=== PATIENT | female | born 1980 | race Caucasian/White ===

== ENCOUNTER 2020-02-03 23:05 | Observation (INO) ==
--- NOTE | 2020-02-03 23:31 | Emergency Department Note ---
Impression & Plan Acute cholecystitis, Elevated liver enzymes ED Provider Note Name: MARLA SANCHEZ Age: 39 Sex: F Arrives Via: Walk-In Informant: Patient ED Provider: Barrera Carr MD Chief Complaint: RUQ pain Impression: Acute Cholecystitis Elevated Liver Enzymes Medical Decision Making: Very pleasant 39 yr old female without PMH arrives for acute RUQ pain over last 2 days. Anxious on arrival consistent with tachy/HTN. Declines pain meds though clearly has RUQ TTP. US concerning for acute cholecystitis and with exam and elevated LFTs this seems in line. Given IV mefoxine for abx coverage and Gen surg consulted for further management. She does not have diffuse p eritonitis and is not jaundice, I do not feel CT a/p at this time necessary but will defer to gen surg. Prior Medical Record and Triage/Nursing Notes reviewed by Me Differentials:Cholecystitis, GB stones, hepatitis, PUD, gastritis, appendicis, renal colic, pyelonephritis, gastroenteritis, amongst other pathologies. Vital Signs: reviewed and remarkable for HTN, Tachy Interventions: Mefoxin 2gm IV Labs:Reviewed and remarkable for elevated LFTs, mild wbc elevation Imaging:[facility] Radiologist interpretation reviewed by me: "US RUQ: Gallbladder sludge and stones with mild gallbladder wall thickening. No surrounding fluid. No bile duct dilatation. Evidence of hepatic steatosis. Unremarkable right kidney. Radiologist: Kuldeep Nur MD" Consults:Silvio aFbian PA-C Gen Surg - will bring in for further management Plan: Disposition:Hospitalization. Condition: Good Prescriptions:none PDMP: n/a History of Present Illness:39 yr old female arrives for evaluation of RUQ pain. Patient notes she started having RUQ pain yesterday evening after dinner. She took Motrin with mild relief and didn't eat anything more until this afternoon. When eating this afternoon pain return. Gradually worsening throughout the evening. Associated mild diarrhea earlier. Pain radiates to right back. No fevers, chills, nausea, vomiting, syncope, urinary symptoms, blood in urine/stool, leg swelling, rashes nor other symptoms. No trauma nor injuries. No previous abdominal issues. ROS: See above HPI for pertinent positives & negatives. A total of 10 systems reviewed and were otherwise negative. Past Medical History:Healthy Past Surgical History:Tonsils Family History:Mother and Brother with gallbladder issues Social History:Works from home for [employer] No smoking, no drugs, no etoh Home Medications:Multivitamin Allergies:NKDA Vitals:Blood Pressure: 188/99, Pulse 123, RR 20, T 37.0C, O2 100% on RA Physical Exam: GENERAL: Patient is uncomfortable appearing and in mild distress. Declines pain meds EYES: No scleral icterus, unremarkable pupils. ENT: Mucous membranes moist, no nasal congestion. NECK: No masses appreciated, nomeningismus, trachea is midline. RESPIRATORY: No dyspnea. Clear to auscultation and equal bilaterally. No wheeze, no rhonchi. CARDIOVASCULAR: Regular rate and rhythm.No murmurs, rubs, gallops appreciated. GASTROINTESTINAL: RUQ TTP otherwise abdomen soft, non-tender, no peritonitis.Bowel sounds positive.No masses appreciated. BACK: No midline tenderness, no CVA tenderness EXTREMITIES: Normal motion all extremities, no cyanosis, no edema. NEUROLOGIC: Alert and oriented, no acute motor or sensory deficits, no focal weakness, cranial nerves grossly intact. SKIN: No rash, no jaundice, no diaphoresis. PSYCH: Appropriate GCS: 15 ED Course: Times/Reassessments: Comfortable while not moving, agreeable with Gen Surg Evaluation Barrera Carr MD Past Med/Surg History Social History Smoking Status: Never smoker Feels Safe at Home: Yes Allergies Allergies Allergy/AdvReac Type Severity Reaction Status Date / Time Penicillins AdvReac Unknown Verified 02/04/20 00:01 Home Meds Home Medications Medication Instructions Recorded Confirmed pediatric multivitamin no.30 1 tab PO DAILY 02/04/20 02/04/20 [[facility] Children Multivitamin] Results & Data (ED) Vital Signs Vital Signs - 24 hr 02/03/20 23:12 02/04/20 00:40 02/04/20 01:43 Temperature 37.0 C Temperature Source Oral Pulse Rate 123 H Pulse Rate [Finger] 116 H 116 H Respiratory Rate 20 20 18 Respiratory Effort / Characteristics Non-Labored Spontaneous Non-Labored Spontaneous Non-Labored Spontaneous Respiratory Depth Normal Normal Normal Blood Pressure 188/99 H Blood Pressure [Right Arm] 136/87 148/92 H Blood Pressure Mean 128 Blood Pressure Mean [Right Arm] 103 110 Pulse Oximetry 100 98 98 Oxygen Delivery Method Room Air Room Air Room Air Sepsis Recent Fever Within 48 Hours No Sepsis New/Unexplained Change in Mental Status No Sepsis Action Taken by Nursing No Action Required 02/04/20 02:31 Temperature Temperature Source Pulse Rate Pulse Rate [Finger] 117 H Respiratory Rate 22 Respiratory Effort / Characteristics Non-Labored Spontaneous Respiratory Depth Normal Blood Pressure Blood Pressure [Right Arm] 137/83 Blood Pressure Mean Blood Pressure Mean [Right Arm] 101 Pulse Oximetry 99 Oxygen Delivery Method Room Air Sepsis Recent Fever Within 48 Hours Sepsis New/Unexplained Change in Mental Status Sepsis Action Taken by Nursing Laboratory Data Result diagrams: 02/03/20 23:43 02/03/20 23:43 Lab Results 02/03/20 02/03/20 02/03/20 Range/Units 23:10 23:10 23:43 WBC 14.26 H (4.8-10.8) K/uL RBC 4.56 (4.2-5.4) M/uL Hgb 14.6 (12.0-16.0) g/dL Hct 41.9 (37-47) % MCV 91.9 (80-100) fL MCH 32.0 (25-34) pg MCHC 34.8 (32-36) g/dL RDW Std Deviation 40.7 (36.4-46.3) fL RDW Coeff of Ethel 12.2 (11.5-14.5) % Plt Count 222 (130-400) K/uL MPV 10.3 (7.4-10.4) fL Immature Gran % (Auto) 0.3 % Neut % (Auto) 89.0 % Lymph % (Auto) 5.5 % Blount % (Auto) 5.0 % Eos % (Auto) 0.1 % Baso % (Auto) 0.1 % Neut # (Auto) 12.68 H (1.4-6.5) K/uL Lymph # (Auto) 0.79 L (1.2-3.4) K/uL Blount # (Auto) 0.72 H (0.11-0.59) K/uL Eos # (Auto) 0.01 (0-0.5) K/uL Baso # (Auto) 0.02 (0-0.2) K/uL Immature Gran # (Auto) 0.04 H (0.00-0.02) K/uL Sodium (136-145) mmol/L Potassium (3.5-5.1) mmol/L Chloride (98-107) mmol/L Carbon Dioxide (21-32) mmol/L Anion Gap (3-11) BUN (7-18) mg/dl Creatinine (0.6-1.2) mg/dl Est Cr Clr Drug Dosing ml/min Est GFR ( Amer) Est GFR (Non-Af Amer) BUN/Creatinine Ratio (10-20) Glucose (70-99) mg/dl Calcium (8.5-10.1) mg/dl Total Bilirubin (0.2-1) mg/dl Direct Bilirubin (0-0.2) mg/dl AST (15-37) U/L ALT (12-78) U/L Alkaline Phosphatase (45-117) U/L Total Protein (6.4-8.2) gm/dl Albumin (3.4-5.0) gm/dl Lipase (73-393) U/L Urine Color Yellow Urine Appearance Clear (Clear) Urine pH 5.0 (4.5-7.5) Ur Specific [place] 1.016 (1.000-1.030) Urine Protein Negative (Negative) Urine Glucose (UA) Negative (Negative) Urine Ketones Trace H (Negative) Urine Blood 1+ H (Negative) Urine Nitrite Negative (Negative) Urine Bilirubin Negative (Negative) Urine Urobilinogen Negative (Negative) Ur Leukocyte Esterase Trace H (Negative) Urine WBC (Auto) 1-5 (0-5) /hpf Urine RBC (Auto) 0-4 (0-4) /hpf U Hyaline Cast (Auto) 0 (0-5) /lpf U Epithel Cells (Auto) 10-20 H (0-5) /lpf Urine Bacteria (Auto) Negative (Negative) Urine Test Negative (Negative) SARS-CoV-2 Ag (Rapid) (Negative) 02/03/20 02/04/20 Range/Units 23:43 Unknown WBC (4.8-10.8) K/uL RBC (4.2-5.4) M/uL Hgb (12.0-16.0) g/dL Hct (37-47) % MCV (80-100) fL MCH (25-34) pg MCHC (32-36) g/dL RDW Std Deviation (36.4-46.3) fL RDW Coeff of Ethel (11.5-14.5) % Plt Count (130-400) K/uL MPV (7.4-10.4) fL Immature Gran % (Auto) % Neut % (Auto) % Lymph % (Auto) % Blount % (Auto) % Eos % (Auto) % Baso % (Auto) % Neut # (Auto) (1.4-6.5) K/uL Lymph # (Auto) (1.2-3.4) K/uL Blount # (Auto) (0.11-0.59) K/uL Eos # (Auto) (0-0.5) K/uL Baso # (Auto) (0-0.2) K/uL Immature Gran # (Auto) (0.00-0.02) K/uL Sodium 135 L (136-145) mmol/L Potassium 3.1 L (3.5-5.1) mmol/L Chloride 103 (98-107) mmol/L Carbon Dioxide 23 (21-32) mmol/L Anion Gap 9.0 (3-11) BUN 9 (7-18) mg/dl Creatinine 1.02 (0.6-1.2) mg/dl Est Cr Clr Drug Dosing 71.5 ml/min Est GFR ( Amer) 79.1 Est GFR (Non-Af Amer) 68.3 BUN/Creatinine Ratio 8.8 L (10-20) Glucose 173 H (70-99) mg/dl Calcium 8.8 (8.5-10.1) mg/dl Total Bilirubin 1.1 H (0.2-1) mg/dl Direct Bilirubin 0.8 H (0-0.2) mg/dl AST 507 H (15-37) U/L ALT 320 H (12-78) U/L Alkaline Phosphatase 72 (45-117) U/L Total Protein 7.6 (6.4-8.2) gm/dl Albumin 4.0 (3.4-5.0) gm/dl Lipase 78 (73-393) U/L Urine Color Urine Appearance (Clear) Urine pH (4.5-7.5) Ur Specific [place] (1.000-1.030) Urine Protein (Negative) Urine Glucose (UA) (Negative) Urine Ketones (Negative) Urine Blood (Negative) Urine Nitrite (Negative) Urine Bilirubin (Negative) Urine Urobilinogen (Negative) Ur Leukocyte Esterase (Negative) Urine WBC (Auto) (0-5) /hpf Urine RBC (Auto) (0-4) /hpf U Hyaline Cast (Auto) (0-5) /lpf U Epithel Cells (Auto) (0-5) /lpf Urine Bacteria (Auto) (Negative) Urine Test (Negative) SARS-CoV-2 Ag (Rapid) Negative (Negative) Administered Medications Potassium Chloride (K Oumar / Wtr) 10 meq in 100 mls @ 100 mls/hr IV Q1H TERESA Stop: 02/04/20 03:44 Last Admin: 02/04/20 01:43 Dose: 100 mls/hr Documented by: [id number] Discontinued Medications Cefoxitin Sodium (Mefoxin) 2,000 mg in 60 mls @ 100 mls/hr IV NOW STA Stop: 02/04/20 01:25 Last Infusion: 02/04/20 02:30 Dose: 0 mls/hr Documented by: [id number] Admin: 02/04/20 01:29 Dose: 100 mls/hr Documented by: [id number] Discharge Plan Visit Data Chief Complaint: Abdominal Pain Stated Complaint: UPPER RIGHT ABD PAIN ED Provider: Barrera Carr Discharge Problem: Acute cholecystitis, Elevated liver enzymes Forms Stand Alone Forms: [facility] [employer] Prescriptions Prescriptions: No Action Gummies Children Multivitamin Tablet,Chewable 1 tab PO DAILY RF: 0
[2020-02-04 00:05] LABS: Appearance Urine Clear (Clear); Bacteria Urine Automated Negative (Negative); Bilirubin Urine Negative (Negative); Blood Urine 1+ (Negative); Cast Urine Automated 0 /lpf (0-5); Color Urine Yellow; Glucose Urine UA Negative (Negative); Ketones Urine Trace (Negative); Leukocyte Esterase Urine Trace (Negative); Nitrite Urine Negative (Negative); Protein Urine Negative (Negative); RBC Urine Automated 0-4 /hpf (0-4); Specific Gravity Urine 1.016 (1.000-1.030); Urobilinogen Urine Negative (Negative)
[2020-02-04 00:24] LABS: Basophils # (auto) 0.02 K/uL (0-0.2); Basophils % (auto) 0.1 %; Eosinophils # (auto) 0.01 K/uL (0-0.5); Eosinophils % (auto) 0.1 %; Hematocrit (blood only) 41.9 % (37-47); Hemoglobin 14.6 g/dL (12.0-16.0); Immature Granulocytes # (auto) 0.04 K/uL (0.00-0.02); Immature Granulocytes % (auto) 0.3 %; Lymphocytes # (auto) 0.79 K/uL (1.2-3.4); Lymphocytes % (auto) 5.5 %; Mean Corpuscular Hgb Conc 34.8 g/dL (32-36); Mean Corpuscular Volume 91.9 fL (80-100); Mean Platelet Volume 10.3 fL (7.4-10.4); Monocytes # (auto) 0.72 K/uL (0.11-0.59); Neutrophils # (auto) 12.68 K/uL (1.4-6.5); Platelet Count 222 K/uL (130-400); RDW Coefficient of Variation 12.2 % (11.5-14.5); RDW Standard Deviation 40.7 fL (36.4-46.3); Red Blood Count 4.56 M/uL (4.2-5.4); White Blood Count 14.26 K/uL (4.8-10.8)
[2020-02-04 00:26] LABS: BUN Creatinine Ratio 8.8 (10-20); Bilirubin Direct 0.8 mg/dl (0-0.2); Calcium 8.8 mg/dl (8.5-10.1); Creatinine Clr Calc Pharmacy 71.5 ml/min; Est GFR (African American) 79.1; Est GFR (Non-African American) 68.3; Potassium 3.1 mmol/L (3.5-5.1)
[2020-02-04 00:29] LABS: Bilirubin,Total 1.1 mg/dl (0.2-1); Total Protein 7.6 gm/dl (6.4-8.2)
[2020-02-04] MEDS ORDERED: cefOXitin 2,000 MG/60 ML BAG IV STA (00:50)
[2020-02-04 01:37] LABS: Pregnancy Test, Urine Negative (Negative)
--- NOTE | 2020-02-04 01:42 | History & Physical Report ---
Date of Service February 04, 2020 Assessment & Plan (1) Acute cholecystitis: Admission and Anticipated Discharge Date Admission Date: admit to hospital and proceed as follows: -repeat labs in am -repleat potassium -pt. received mefoxin in ED--will continue -provide analgesics and anti-emetics -keep npo -hydrate with IVF -urine test is pending -plan on cholecystectomy tomorrow with possible IOC by this admission--consent on chart History of Present Illness Chief Complaint: Abdominal Pain Primary Care Provider: NO PCP 39 year old female presented to [facility] ED due to RUQ abdominal pain that began last night about 1 hour after eating. The pain radiated to her back without o ther provocative factors. The pain was relieved with cessation of oral intake. She denies fevers, shakes, chills, or N/V. She has never had this before. In the ED, GB US showed gallstones, sludge, and GB wall thickening. The was slight elevation of Bilirubin. LFTs were elevated. Lipase was normal. COVID- 19 test done in ED was (-). At the time of my exam she was comfortable in no distress. Allergies Allergy/AdvReac Type Severity Reaction Status Date / Time Penicillins AdvReac Unknown Verified 02/04/20 00:01 Home Medications Medication Instructions Recorded Confirmed Type oxycodone-acetaminophen [Percocet] 1 - 2 tab PO .q4-6h PRN #12 tab 02/04/20 Rx pediatric multivitamin no.30 1 tab PO DAILY 02/04/20 02/04/20 History [Gummies Children Multivitamin] Past Med/Surg History Social History Smoking Status: Never smoker Second Hand Exposure: No; Do You Dip or Chew Tobacco: No; Hx Alcohol Use: No Hx Substance Use: No Preferred Language: Fijian Communication Ability: Effective Industrial Safety And Health Manager Required: No Beliefs That Will Affect Care: None Current Living Situation: Spouse Other Information That Helps Us Care for You: No Feels Safe at Home: Yes Safety Concerns: Feels Safe At This Time Assistive Devices: None Review of Systems Constitutional: no fever and no sweats Eyes: no diplopia Ear, Nose, Mouth, Throat: no ear pain Respiratory: no cough and no dyspnea Cardiovascular: no chest pain Gastrointestinal: + abdominal pain; no nausea and no vomiting Genitourinary: no dysuria Musculoskeletal: + back pain Integumentary: no rash Neurologic: no localized weakness Physical Exam Constitutional: well developed and well nourished; no acute distress Eyes: + anicteric sclerae ENMT: Ears: no hearing impairment no sublingual jaundice Neck: trachea midline Respiratory: normal respiratory effort, lungs clear to auscultation Cardiovascular: Rate/Rhythm: regular rate and regular rhythm Gastrointestinal (Abdomen): Percussion/Palpation: + abdomen tender (RUQ) and abdomen soft (+) Kern's sign, no rebound tenderness or guarding Musculoskeletal: no calf pain Skin: no jaundice Neurologic: moves all extremities Psychiatric: A+Ox3, euthymic affect Results & Data Results & Data ([facility]) Vital Signs (Past 12 Hours) Vital Signs Temp Pulse Pulse Resp BP BP Pulse Ox 02/04/20 00:40 116 H 20 136/87 98 02/03/20 23:12 37.0 C 123 H 20 188/99 H 100 Supervising Physician Co-Signing Physician Notes Patient discussed with SONIA Vega overnight, agree with above. See my progress note from this morning for further details. PG Care Time/CCT Total # of Minutes Spent Total Time Spent with Patient: Total time spent is greater than 50% in coordination of care (as documented) at patient's floor/unit and/or counseling patient: Coding Level of Care Code 49809 OBS Care - Level 3 Diagnoses Acute cholecystitis K81.0
[2020-02-04] MEDS: POTASSIUM CHLORIDE / WTR 10 MEQ/100 ML PLCT IV SCH ×2 (01:43→03:39)
[2020-02-04] MEDS ORDERED: MoRPHine SULFATE 2 MG/ML CARP IV PRN (02:51)
[2020-02-04] MEDS: LACTATED RINGER'S 1,000 ML IV SCH ×3 (03:38→20:19)
[2020-02-04] MEDS: ONDANSETRON INJ 2 MG/ML 2 ML VIAL IV SCH ×4 (04:26→20:15)
[2020-02-04] MEDS: cefOXitin 2,000 MG in DEXTROSE 5% 50 ML IV SCH ×4 (05:43→23:07)
[2020-02-04 06:07] LABS: Basophils # (auto) 0.02 K/uL (0-0.2); Basophils % (auto) 0.3 %; Eosinophils # (auto) 0.01 K/uL (0-0.5); Eosinophils % (auto) 0.2 %; Hematocrit (blood only) 43.2 % (37-47); Hemoglobin 15.2 g/dL (12.0-16.0); Immature Granulocytes # (auto) 0.01 K/uL (0.00-0.02); Immature Granulocytes % (auto) 0.2 %; Lymphocytes # (auto) 0.88 K/uL (1.2-3.4); Lymphocytes % (auto) 13.7 %; Mean Corpuscular Hemoglobin 32.4 pg (25-34); Mean Corpuscular Volume 92.1 fL (80-100); Mean Platelet Volume 10.1 fL (7.4-10.4); Monocytes # (auto) 0.61 K/uL (0.11-0.59); Monocytes % (auto) 9.5 %; Neutrophils # (auto) 4.89 K/uL (1.4-6.5); Neutrophils % (auto) 76.1 %; Platelet Count 217 K/uL (130-400); RDW Coefficient of Variation 12.4 % (11.5-14.5); RDW Standard Deviation 41.9 fL (36.4-46.3); Red Blood Count 4.69 M/uL (4.2-5.4); White Blood Count 6.42 K/uL (4.8-10.8)
[2020-02-04 06:14] LABS: Mean Corpuscular Hgb Conc 35.2 g/dL (32-36)
[2020-02-04 06:42] LABS: Albumin Level 3.9 gm/dl (3.4-5.0); Bilirubin Direct 1.3 mg/dl (0-0.2); Calcium 8.7 mg/dl (8.5-10.1); Creatinine Clr Calc Pharmacy 98.5 ml/min; Est GFR (African American) 118.6; Est GFR (Non-African American) 102.3; Potassium 3.7 mmol/L (3.5-5.1)
[2020-02-04 06:50] LABS: Bilirubin,Total 1.8 mg/dl (0.2-1); Total Protein 7.9 gm/dl (6.4-8.2)
--- NOTE | 2020-02-04 07:18 | Ultrasound Report ---
ULTRASOUND RIGHT UPPER QUADRANT ABDOMEN CLINICAL HISTORY: Postprandial right upper quadrant abdominal pain. COMPARISON STUDY: No priors. TECHNIQUE: Real-time, grayscale, and color flow sonography of the right upper quadrant of the abdomen was performed. Images are reviewed in the transverse and longitudinal planes. FINDINGS: Liver: The liver is normal in size and echotexture. There is no intrahepatic biliary ductal dilatatio n. The main portal vein is patent. Gallbladder: The gallbladder is filled with stones and sludge. The gallbladder wall is mildly thicken ed measuring up to 4 mm. No pericholecystic fluid is seen. A sonographic Kern's sign is reportedly absent. The common bile duct measures up to 0.5 cm in diameter. Pancreas: Visualized portions of the pancreatic head and body are normal in appearance. The splenic v ein is patent. Right kidney: Survey images of the right kidney demonstrate normal size and echotexture. There is no hydronephrosis. Ascites: None. IMPRESSION: 1. The gallbladder is filled with stones and sludge and there is mild gallbladder wall thickening. Th ere is no definitive sonographic evidence of acute cholecystitis. If there is strong clinical concern a nuclear hepatobiliary scan could be considered. 2. There is no intra or extrahepatic biliary ductal dilatation. ACT 112: Negative or not required by law. Electronically signed by: Shalom Mendoza M.D. 02/04/2020 7:17 AM
--- NOTE | 2020-02-04 09:38 | Surgery Progress Note ---
Date of Service February 04, 2020 Assessment & Plan (1) Acute cholecystitis: Patient admitted with RUQ pain- RUQ US on 02/02 revealed cholelithiasis and sludge with mild gallbladder wall thickening. There is no intra or extrahepatic biliary ductal dilatation WBC down today to 6.4 from 14 on abx; afebrile Today there is an elevation in her LFTs, Tbili 1.8 (1.1), Db: 1.3 (0.8), AST: 1756 (507), ALT: 1333 (320) Due to bump in LFT's we will order an MRCP today to evaluate for CBD stones; pen ding results will take patient to OR +/- GI for consideration of ERCP Further recommendations to follow s/p MRCP Admission and Anticipated Discharge Date Admission Date: February 04, 2020 Supervising Physician Co-Signing Physician Notes Patient seen and examined, labs and imaging reviewed, agree with above. Patient admitted overnight with cholelithiasis and possible cholecystitis. Marginal elevation in her LFTs and bilirubin, which increased significantly this morning. GI was consulted and MRCP was ordered. MRCP was just obtained and showed no evidence of choledocholithiasis. Her pain is minimal at this time. On exam she is afebrile with stable vitals. Mild tenderness to palpation in the right upper quadrant with no evidence of guarding or rebound, no Kern sign. Leukocytosis has resolved. Hyperbilirubinemia and transaminitis noted. Ultrasound with stones and sludge and possible wall thickening, MRCP with no evidence of choledocholithiasis. 39-year-old female with cholelithiasis and likely cholecystitis and recently passed small stone. After discussion with GI we will proceed with cholecystectomy. Plan for laparoscopic cholecystectomy with possible cholangiogram The risk the procedure were discussed to include but not limited to bleeding, infection, retained stone, bile leak, damage surrounding structures including common bile duct, need for future more extensive surgery, conversion open, failure to treat symptoms, and the risk of anesthesia Likely discharge tomorrow morning if bilirubin and enzymes are improving and pain controlled Wound care instructions and activity restrictions reviewed The diagnosis, details of the procedure and recovery, and plan of care were discussed with the patient, all questions were answered, the patient expressed understanding and agrees with plan of care as stated Subjective Evaluated patient at bedside. She reports not much pain overnight because she hasn't been eating. Denies any nausea/vomiting. Eager to try to get home for thanksgiving. Physical Exam Physical Exam: awake/alert Constitutional: well developed, well nourished and comfortable; no acute distress Respiratory: normal respiratory effort Gastrointestinal (Abdomen): Inspection/Auscultation: abdomen not distended Percussion/Palpation: + abdomen tender (very mild ttp in RUQ) and abdomen soft Results & Data ([facility]) Vital Signs (Past 12 Hours) Vital Signs Temp Pulse Pulse Resp BP BP Pulse Ox 02/04/20 07:50 36.8 C 86 16 141/93 H 100 02/04/20 02:52 36.9 C 113 H 20 147/88 H 100 02/04/20 02:31 117 H 22 137/83 99 02/04/20 01:43 116 H 18 148/92 H 98 02/04/20 00:40 116 H 20 136/87 98 02/03/20 23:12 37.0 C 123 H 20 188/99 H 100 [facility], [id number] Ultrasound Report Patient: MARLA SANCHEZ Date: 02/04/20MR#: [id number]: [address]Acct ID:[id number]: Date: 1980[facility] Zip: [place], [place] [address]Pbf: 39Location: 3ESex: FRoom/Bed: [id number] Phy: Patric Crain, DODiagnosis: CHOLECYSTITISPri Phy: PCP,NOService Date: 02/03/20Fa Phy:Interpreting Phy: Shalom Mendoza MDAdmit Phy: Patric Crain, DO Ordering Phy: Barrera Carr M.D. cc: ~ ULTRASOUND RIGHT UPPER QUADRANT ABDOMEN CLINICAL HISTORY: Postprandial right upper quadrant abdominal pain. COMPARISON STUDY: No priors. TECHNIQUE: Real-time, grayscale, and color flow sonography of the right upper quadrant of the abdomen was performed. Images are reviewed in the transverse and longitudinal planes. FINDINGS: Liver: The liver is normal in size and echotexture. There is no intrahepatic biliary ductal dilatation. The main portal vein is patent. Gallbladder: The gallbladder is filled with stones and sludge. The gallbladder wall is mildly thickened measuring up to 4 mm. No pericholecystic fluid is seen. A sonographic Kern's sign is reportedly absent. The common bile duct measures up to 0.5 cm in diameter. Pancreas: Visualized portions of the pancreatic head and body are normal in appe arance. The splenic vein is patent. Right kidney: Survey images of the right kidney demonstrate normal size and echotexture. There is no hydronephrosis. Ascites: None. IMPRESSION: 1. The gallbladder is filled with stones and sludge and there is mild gallbladder wall thickening. There is no definitive sonographic evidence of acute cholecystitis. If there is strong clinical concern a nuclear hepatobiliary scan could be considered. 2. There is no intra or extrahepatic biliary ductal dilatation. ACT 112: Negative or not required by law. Electronically signed by: Shalom Mendoza M.D. 02/04/2020 7:17 AM PG Care Time/CCT Total # of Minutes Spent Total Time Spent with Patient: Total time spent is greater than 50% in coordination of care (as documented) at patient's floor/unit and/or counseling patient: Coding Level of Care Code 25240 Subseq Hosp Care Lvl 1 Diagnoses Acute cholecystitis K81.0
--- NOTE | 2020-02-04 10:12 | Magnetic Resonance Report ---
MRCP CLINICAL HISTORY: Elevated hepatic transaminases. Cholecystitis. COMPARISON STUDY: Abdominal ultrasound dated 02/03/2020. TECHNIQUE: Abdominal MRCP is performed utilizing various T2-weighted sequences in the axial and coron al planes. IV contrast was not administered for this examination. 3-D reformats are created and asses sed. FINDINGS: Intraluminal debris/gallstones are seen within the gallbladder by ultrasound are not visualized by MR I. There is mild nonspecific gallbladder wall thickening. No pericholecystic fluid is identified. The re is no intra or extrahepatic biliary ductal dilatation. The common bile duct measures up to 4 mm in diameter. There are no intraluminal filling defects to suggest choledocholithiasis. The pancreatic d uct is normal in caliber. The unenhanced liver, spleen, adrenal glands, kidneys, and pancreas are grossly normal. The abdominal aorta is normal in caliber. There is no bowel obstruction. No abdominal ascites is identified. There is no pleural effusion. The bony structures appear intact. IMPRESSION: 1. Intraluminal debris/gallstones identified by ultrasound are not appreciated by MRI. 2. Mild gallbladder wall thickening is nonspecific. If there is clinical concern for acute cholecysti tis a nuclear hepatobiliary scan should be considered. 3. There is no intra or extrahepatic biliary ductal dilatation. No choledocholithiasis is seen. Electronically signed by: Shalom Mendoza M.D. 02/04/2020 10:11 AM
[2020-02-04] MEDS ORDERED: PROPOFOL IV EMULSION 10 MG/ML 20 ML VIAL IV ONE (11:23)
[2020-02-04] MEDS ORDERED: fentaNYL citrate 100 MCG/2 ML VIAL ONE (11:23)
[2020-02-04] MEDS ORDERED: MIDAZOLAM HCL 1 MG/ML 2ML VIAL ONE (11:23)
[2020-02-04] MEDS ORDERED: LIDOCAINE HCL 2% 2 ML VIAL/AMP(20MG/ML) INFIL ONE (11:23)
[2020-02-04] MEDS ORDERED: ROCURONIUM BROMIDE 10 MG/ML 5 ML VIAL IV ONE (11:23)
[2020-02-04] MEDS ORDERED: BUPIVACAINE 0.5 % 5 MG/1 ML MPF 30ML VIAL ONE (11:44)
[2020-02-04] MEDS ORDERED: ATROPINE SULFATE 0.1 MG/ML 10ML SYR IV PRN (12:06)
[2020-02-04] MEDS ORDERED: ONDANSETRON INJ 2 MG/ML 2 ML VIAL IV PRN (12:06)
[2020-02-04] MEDS ORDERED: fentaNYL citrate 100 MCG/2 ML VIAL IV PRN (12:06)
[2020-02-04] MEDS ORDERED: ePHEDrine sulfate 50 MG/ML AMP IV PRN (12:06)
--- NOTE | 2020-02-04 12:06 | Anesthesiology Consultation ---
Date of Service February 04, 2020 Assessment & Plan (1) Encounter for pre-operative examination: Chart Review Chart Review: Acceptable Risk for Surgery and Patient NOT seen in Pre Admission Testing Consults Requested none ASA ASA1 Proposed Anesthesia Anesthesia Type: General Risk / Benefits Reviewed With: PT / POA / Parent / Guardian, Accepts Plan and Informed Consent Obtained History Surgery Operation Date: 02/04/20 11:20 Proposed Procedures p Laparoscopic Cholecystectomy,Possible Open, Possible Cholangiogram - Patric Crain, DO, FACS Height/Weight Height: 5 ft 4 in Weight: 71.8 kg Allergies Allergy/AdvReac Type Severity Reaction Status Date / Time Penicillins AdvReac Unknown Verified 02/04/20 00:01 Medications Home Medications Medication Instructions Recorded Confirmed Last Taken oxycodone-acetaminophen [Percocet] 1 - 2 tab PO .q4-6h PRN #12 tab 02/04/20 Unknown pediatric multivitamin no.30 1 tab PO DAILY 02/04/20 02/04/20 02/03/20 [Gummies Children Multivitamin] Active Medications Generic Name Dose Route Start Last Admin Trade Name Freq PRN Reason Stop Dose Admin Cefoxitin Sodium 2,000 mg/ 60 mls @ 100 mls/hr 02/04/20 06:00 02/04/20 11:57 Dextrose IV 02/14/20 05:59 100 mls/hr Q6H TERESA Administration Lactated Ringer's 1,000 mls @ 100 mls/hr 02/04/20 02:51 02/04/20 06:38 Lr IV 03/05/20 02:50 100 mls/hr .Q10H TERESA Infusion Ondansetron HCl 4 mg 02/04/20 02:51 02/04/20 09:22 Ondansetron Inj 2 Mg/Ml 2 Ml Vial IV 03/05/20 02:50 4 mg Q6H TERESA Administration NPO Date Last Intake of Fluids: 02/03/20 Time Last Intake of Fluids: 21:00 Date Last Intake of Solids: 02/03/20 Time Last Intake of Solids: 14:00 Exercise / Class Metabolic Activity II 4-5 Yardwork/Stairs/Walk up hill Past Anesthesia History No Hx of Anesthesia Complications and No Family Hx of Anesthesia Complications History of PONV No Hx of PONV and No Hx of Motion Sickness Social History Smoking Status: Never smoker Do You Dip or Chew Tobacco: No Hx Alcohol Use: No Hx Substance Use: No Physical Exam Vital Signs Last Vital Signs Temp 37.1 C 02/04/20 11:15 Pulse 87 02/04/20 11:15 Resp 18 02/04/20 11:15 BP 152/86 H 02/04/20 11:15 Pulse Ox 99 02/04/20 11:15 ENMT Mouth: no dentition abnormality Thyromental Distance: > or= 3.5 Finger Breadths Mallampati Class: II Neck normal visual inspection Respiratory normal respiratory effort Auscultation: lungs clear to auscultation bilaterally Cardiovascular Rate/Rhythm: regular rate and regular rhythm Psychiatric Orientation: alert Testing Laboratory Results 02/04/20 05:50 02/04/20 05:50 Urine Color Yellow 02/03/20 23:10 Urine Appearance Clear (Clear) 02/03/20 23:10 Urine pH 5.0 (4.5-7.5) 02/03/20 23:10 Ur Specific [place] 1.016 (1.000-1.030) 02/03/20 23:10 Urine Protein Negative (Negative) 02/03/20 23:10 Urine Glucose (UA) Negative (Negative) 02/03/20 23:10 Urine Ketones Trace (Negative) H 02/03/20 23:10 Urine Nitrite Negative (Negative) 02/03/20 23:10 Ur Leukocyte Esterase Trace (Negative) H 02/03/20 23:10 Urine WBC (Auto) 1-5 /hpf (0-5) 02/03/20 23:10 Urine RBC (Auto) 0-4 /hpf (0-4) 02/03/20 23:10 U Hyaline Cast (Auto) 0 /lpf (0-5) 02/03/20 23:10 U Epithel Cells (Auto) 10-20 /lpf (0-5) H 02/03/20 23:10 Urine Bacteria (Auto) Negative (Negative) 02/03/20 23:10 Urine Test Negative (Negative) 02/03/20 23:10 02/03/20 23:10 Urine Test Negative
[2020-02-04] MEDS ORDERED: CONRAY 60% 50 ML VIAL FLUSH ONE (12:41)
--- NOTE | 2020-02-04 13:33 | Operative Report ---
PG Post Operative Report Pre & Post Diagnosis Operation Date: 02/04/20 11:20 Pre-Op Diagnosis: CHOLECYSTITIS Post-Op Diagnosis: CHOLECYSTITIS I identified the patient and participated in the time-out.: Yes Procedure Operation Date: 02/04/20 11:20 Actual Procedures p Laparoscopic Cholecystectomy,Attempted Cholangiogram - Patric Crain DO, GISELA Surgeon Patric Crain DO, GISELA Tobacco Curer Alex Faith Estimated Blood Loss 10 Findings Consistent with Post-Op Diagnosis Mild chronic gallbladder inflammation. Cystic duct and artery circumferentially dissected. Cystic artery doubly clipped and divided. Cystic duct was dilated. Multiple attempts at cholangiogram were unsuccessful. During the process several small stones were extracted through the distal cystic duct. Aborted cholangiogram, cystic duct doubly clipped and divided. Gallbladder removed, 10 mm flat MILTON drain placed in gallbladder fossa, good hemostasis. Specimens Gallbladder Anesthesia Type General Complications none Disposition Accompanied Patient To Recovery: No Disposition: Recovery Room Indications 39-year-old female admitted overnight with cholelithiasis and likely cholecystitis. This morning her LFTs and bilirubin were more elevated, MRCP was performed and was negative. After discussion with GI we decided to proceed with laparoscopic cholecystectomy with possible cholangiogram. The risks of the procedure were discussed, all questions were answered, and the patient agreed to proceed with surgery as planned. Description of Procedure The patient was properly identified, consented, and taken to the operating room where she was placed in the supine position. General endotracheal anesthesia was induced. SCDs and a safety belt were placed. Preoperative antibiotics were administered. The patient's abdomen was prepped and draped in the standard sterile fashion. A surgical timeout was performed and all parties were in agree ment that this was the correct patient and procedure to be performed and we continued as planned. An incision was made superior and to the left of the umbilicus overlying the rectus muscle and the Veress needle was inserted. Saline drop test confirmed entry into the peritoneum. The abdomen was insufflated with carbon dioxide which the patient tolerated without incident. The abdomen was then entered using the Optiview technique and a 5 mm trocar. The laparoscope was inserted and no damage from initial trocar or Veress needle placement was noted, no gross abnormalities were noted within the 4 quadrants of the abdomen. An 11 mm port was placed in the subxiphoid position and two 5 mm ports were then placed in the right subcostal position. The patient was placed in reverse Trendelenburg position and rotated towards the left. The gallbladder was mildly inflamed. The dome of the gallbladder was retracted towards the left upper quadrant and the infundibulum was retracted toward the ri ght lower quadrant revealing Calot's triangle. Peritoneal attachments were taken down with electrocautery and blunt dissection. The cystic duct and artery were circumferentially dissected. A window of safety was obtained showing the cystic duct entering the gallbladder with no aberrant structures noted. The cystic artery was doubly clipped and divided. I then attempted to perform a cholangiogram using the Nesbitt cholangiocatheter but had significant back pressure and was unsuccessful. Repeated attempts using a Kemi catheter were also unsuccessful. During the process we did extract 2 to 3 stones out of the distal cystic duct. The cystic duct was doubly clipped and divided. The gallbladder was then lifted off the gallbladder fossa with electrocautery. The gallbladder was placed in an Endo Catch bag and removed through the subxiphoid port site. The right upper quadrant was irrigated and hemostasis was found to be good. A 10 mm flat MILTON drain was then placed in the gallbladder fossa in case the patient needed an ERCP in the near future. 5 mm trochars were removed under direct visualization and the abdomen was allowed to collapse. The subxiphoid port site fascia was closed with 0 Vicryl suture utilizing the Jose Carlos-Solitario device. The wound was irrigated, and the skin of all ports was closed with 4-0 Monocryl subcuticular sutures. Dermabond was placed over the wounds. The patient was extubated in the operating room and taken to the PACU where she recovered without apparent incident. All sponge, instrument and needle counts were correct at the conclusion of the procedure. The patient tolerated the procedure well. The physician's radiology physician assistant was present and scrubbed for the entirety of the case and was essential in positioning the patient, prepping and draping, retraction and exposure, driving the laparoscope, removal of the gallbladder, closure of the incisions, and placement of the dressings. I attest to the content of the Intraoperative Record and any orders documented therein. Any exceptions are noted below.
--- NOTE | 2020-02-04 13:53 | Fluoroscopy Report ---
[place] cholangiogram OR CLINICAL HISTORY: Attempted cholangiogram. COMPARISON STUDY: Right upper quadrant ultrasound February 03, 2020. MRCP February 04, 2020. FLUOROSCOPY TIME: 1 minute and 18 seconds. FLUOROSCOPIC IMAGES: 0. FINDINGS: Fluoroscopy was provided during attempted intraoperative cholangiogram. No images were subm itted for interpretation as the cholangiogram was unsuccessful. IMPRESSION: Fluoroscopy provided during attempted cholangiogram. ACT 112: Negative or not required by law. Electronically signed by: Antonio Pettit M.D. 02/04/2020 1:51 PM
--- NOTE | 2020-02-04 14:10 | Anesthesiology Progress Note ---
Date of Service February 04, 2020 Anesthesia Post Procedure Vital Signs Vital Signs: Temp Pulse Pulse Pulse Resp BP BP 02/04/20 14:00 86 16 144/93 H 02/04/20 13:50 98 H 16 151/93 H 02/04/20 13:40 37.6 C H 96 H 16 131/88 02/04/20 11:15 37.1 C 87 18 152/86 H 02/04/20 07:50 36.8 C 86 16 141/93 H 02/04/20 02:52 36.9 C 113 H 20 147/88 H 02/04/20 02:31 117 H 22 137/83 02/04/20 01:43 116 H 18 148/92 H 02/04/20 00:40 116 H 20 136/87 02/03/20 23:12 37.0 C 123 H 20 188/99 H Pulse Ox 02/04/20 14:00 100 02/04/20 13:50 100 02/04/20 13:40 100 02/04/20 11:15 99 02/04/20 07:50 100 02/04/20 02:52 100 02/04/20 02:31 99 02/04/20 01:43 98 02/04/20 00:40 98 02/03/20 23:12 100 Pain Intensity Right Upper Abdomen: Pain Intensity: 2 Transfer of Care Handoff Completed per policy Notes Mental Status: alert / awake / arousable Patient Amnestic to Procedure: Yes Nausea / Vomiting: adequately controlled Pain: adequately controlled Airway Patency, RR, SpO2: stable & adequate BP & HR: stable & adequate Hydration State: stable & adequate Anesthetic Complications: no major complications apparent
[2020-02-04] MEDS ORDERED: MoRPHine SULFATE 4 MG/ML 1 ML CARP\\VIAL IV PRN (14:28)
[2020-02-04] MEDS ORDERED: oxyCODONE/ACETAMINOPHEN 5mg/325mg TAB PO PRN ×2 (14:28)
--- NOTE | 2020-02-04 14:51 | Surgery Progress Note ---
Date of Service February 04, 2020 Assessment & Plan (1) Acute cholecystitis: s/p lap tay with attempted cholangiogram, multiple stones milked from distal cystic duct. Drain placed. Some concern for continued choledocholithiasis. Plan for clear liquids today, NPO after midnight. repeat labs in am, if LFT's downtrending then consider advance diet, removed drain, d/c to home if no significant improvement, then discuss ERCP with gi, they are aware of patient Dr. Helms covering tomorrow wound care instructions and activity restrictions reviewed findings and plan discussed with patient and her . (2) Elevated liver enzymes: (3) Hx laparoscopic cholecystectomy: Admission and Anticipated Discharge Date Admission Date: February 04, 2020 Results & Data ([facility]) Vital Signs (Past 12 Hours) Vital Signs Temp Pulse Pulse Resp BP Pulse Ox 02/04/20 14:15 37.2 C 87 16 152/92 H 98 02/04/20 14:09 85 16 147/92 H 98 02/04/20 14:00 86 16 144/93 H 100 02/04/20 13:50 98 H 16 151/93 H 100 02/04/20 13:40 37.6 C H 96 H 16 131/88 100 02/04/20 11:15 37.1 C 87 18 152/86 H 99 02/04/20 07:50 36.8 C 86 16 141/93 H 100 02/04/20 02:52 36.9 C 113 H 20 147/88 H 100 PG Care Time/CCT Total # of Minutes Spent Total Time Spent with Patient: Total time spent is greater than 50% in coordination of care (as documented) at patient's floor/unit and/or counseling patient: Coding Level of Care Code None Diagnoses Acute cholecystitis K81.0 Elevated liver enzymes R74.8 Hx laparoscopic cholecystectomy Z90.49
--- NOTE | 2020-02-04 15:15 | Gastrointestinal Consultation ---
Date of Consultation February 04, 2020 Assessment & Plan (1) Elevated liver enzymes: (2) Hx laparoscopic cholecystectomy: (3) Acute cholecystitis: Pt is a 39 y/o female who presented w post prandial RUQ abd pain radiating to back, found to have leukocytosis and elevated LFTs; imaging studies showed signs of gallstones, sludge. MRCP negative for choledocholithiasis. Pt's LFTs spiked overnight and she was taken to OR for lap tay this afternoon. Intra op cholangiogram unsuccessful but gallstones were removed from cystic duct, suspected to have more remaining in bile duct. Case discussed w Dr. Zion Odell. Will plan to make pt NPO after midnight and proceed with ERCP in OR tomorrow at 9am. Trend LFTs, continue IVF support and symptomatic management. Supervising Physician Co-Signing Physician Notes I performed a history and physical examination of the patient today, including specifically on physical exam - soft abdomen. I have discussed the patient's management with the advanced practitioner. Please refer to the nurse practitioner's note for the documented findings and plan of care. History of Present Illness Reason for Consultation: Elevated LFTs, cholecystitis Requesting Physician: Dr. Patric Crain Attending Physician: Dr. Zion Odell History of Present Illness Pt is a 39 y/o female who presented w post prandial RUQ abd pain, radiating to back. Denies jaundice, fever, chills, n/v, changes in bowel habits. Upon eval noted to have elevated WBC, and LFTs. Inital gallbladder u/s showed gallstones and sludge w mild gallbladder wall thickening. Overnight LFTs increased. MRCP obtained which showed no choledocholithiasis. She was taken to OR for lap cholecystectomy - stones milked from cystic duct. Attempts at intra op cholangiogram unsuccessful. Surgeon suspected she may have some retained gallstones in bile duct and GI consulted for evaluation of possible ERCP Allergies Allergy/AdvReac Type Severity Reaction Status Date / Time Penicillins AdvReac Unknown Verified 02/09/20 11:52 Home Medications Medication Instructions Recorded Confirmed Type Gummies Children Multivitamin 1 tab PO DAILY 02/04/20 02/04/20 History Patient History Medical History (Updated 02/09/20 @ 12:10 by Madonna Loving RN) Acute cholecystitis Elevated liver enzymes Surgical History (Updated 02/09/20 @ 12:15 by Patric Crain DO, FACS) History of laparoscopic cholecystectomy [address] Crain Social History Smoking Status: Never smoker Second Hand Exposure: No; Hx Alcohol Use: No Hx Substance Use: No Preferred Language: Chinese Communication Ability: Effective Welt Rander Required: No Beliefs That Will Affect Care: None Current Living Situation: Spouse Feels Safe at Home: Yes Assistive Devices: None Review of Systems Review of Systems: All systems reviewed & are unremarkable except as noted in HPI & below Physical Exam Constitutional: WD/WN, vitals as above well groomed, cooperative and comfortable Eyes: PERRL, conjunctivae normal, anicteric sclerae ENMT: external ear and nose normal, oropharynx normal Respiratory: normal respiratory effort, lungs clear to auscultation Cardiovascular: RRR, no murmur, no edema Gastrointestinal (Abdomen): Inspection/Auscultation: + hypoactive bowel sounds lap tay trocar sites CDI. MILTON drain on RUQ area w sangenous drainage Skin: no rashes, warm and dry no jaundice Psychiatric: A+Ox3, euthymic affect Lymphatic: no lymphedema Results & Data ([facility]) Vital Signs (Past 12 Hours) Vital Signs Temp Pulse Pulse Resp BP Pulse Ox 02/04/20 14:55 36.4 C L 78 16 145/92 H 99 02/04/20 14:15 37.2 C 87 16 152/92 H 98 02/04/20 14:09 85 16 147/92 H 98 02/04/20 14:00 86 16 144/93 H 100 02/04/20 13:50 98 H 16 151/93 H 100 02/04/20 13:40 37.6 C H 96 H 16 131/88 100 02/04/20 11:15 37.1 C 87 18 152/86 H 99 02/04/20 07:50 36.8 C 86 16 141/93 H 100
--- NOTE | 2020-02-04 17:44 | Anesthesiology Consultation ---
Date of Service February 04, 2020 Assessment & Plan (1) Encounter for pre-operative examination: Chart Review Chart Review: Acceptable Risk for Surgery and Patient NOT seen in Pre Admission Testing covid screen neg 02/04/2020. patient s/p cholecystectomy 02/04/2020. Consults Requested none History Surgery Operation Date: 02/04/20 11:20 Proposed Procedures p Laparoscopic Cholecystectomy,Possible Open, Possible Cholangiogram - Patric Crain DO, FACS Operation Date: 02/05/20 09:00 Proposed Procedures p Endoscopic Retrograde Cholangiopancreato - Zion Odell MD Height/Weight Height: 5 ft 4 in Weight: 71.8 kg Allergies Allergy/AdvReac Type Severity Reaction Status Date / Time Penicillins AdvReac Unknown Verified 02/04/20 00:01 Medications Home Medications Medication Instructions Recorded Confirmed Last Taken oxycodone-acetaminophen [Percocet] 1 - 2 tab PO .q4-6h PRN #12 tab 02/04/20 Unknown pediatric multivitamin no.30 1 tab PO DAILY 02/04/20 02/04/20 02/03/20 [Gummies Children Multivitamin] Active Medications Generic Name Dose Route Start Last Admin Trade Name Freq PRN Reason Stop Dose Admin Cefoxitin Sodium 2,000 mg/ 60 mls @ 100 mls/hr 02/04/20 06:00 02/04/20 17:22 Dextrose IV 02/14/20 05:59 100 mls/hr Q6H TERESA Administration Lactated Ringer's 1,000 mls @ 100 mls/hr 02/04/20 02:51 02/04/20 14:47 Lr IV 03/05/20 02:50 100 mls/hr .Q10H TERESA Administration Ondansetron HCl 4 mg 02/04/20 02:51 02/04/20 14:50 Ondansetron Inj 2 Mg/Ml 2 Ml Vial IV 03/05/20 02:50 4 mg Q6H TERESA Administration NPO Date Last Intake of Fluids: 02/03/20 Time Last Intake of Fluids: 21:00 Date Last Intake of Solids: 02/03/20 Time Last Intake of Solids: 14:00 Past Medical History Medical History (Updated 02/04/20 @ 17:42 by Uvaldo Silverio MD) Acute cholecystitis Elevated liver enzymes Past Surgical History Surgical History Hx laparoscopic cholecystectomy Laparoscopic Cholecystectomy,Attempted Cholangiogram Dr. Crain 02/04/2020 Social History Smoking Status: Never smoker Do You Dip or Chew Tobacco: No Hx Alcohol Use: No Hx Substance Use: No Physical Exam Vital Signs Last Vital Signs Temp 36.8 C 02/04/20 16:30 Pulse 80 02/04/20 16:30 Resp 17 02/04/20 16:30 BP 144/87 H 02/04/20 16:30 Pulse Ox 95 02/04/20 16:30 Testing Laboratory Results 02/04/20 05:50 02/04/20 05:50 Urine Color Yellow 02/03/20 23:10 Urine Appearance Clear (Clear) 02/03/20 23:10 Urine pH 5.0 (4.5-7.5) 02/03/20 23:10 Ur Specific Eleanor 1.016 (1.000-1.030) 02/03/20 23:10 Urine Protein Negative (Negative) 02/03/20 23:10 Urine Glucose (UA) Negative (Negative) 02/03/20 23:10 Urine Ketones Trace (Negative) H 02/03/20 23:10 Urine Nitrite Negative (Negative) 02/03/20 23:10 Ur Leukocyte Esterase Trace (Negative) H 02/03/20 23:10 Urine WBC (Auto) 1-5 /hpf (0-5) 02/03/20 23:10 Urine RBC (Auto) 0-4 /hpf (0-4) 02/03/20 23:10 U Hyaline Cast (Auto) 0 /lpf (0-5) 02/03/20 23:10 U Epithel Cells (Auto) 10-20 /lpf (0-5) H 02/03/20 23:10 Urine Bacteria (Auto) Negative (Negative) 02/03/20 23:10 Urine Test Negative (Negative) 02/03/20 23:10 02/03/20 23:10 Urine Test Negative
[2020-02-04] MEDS ORDERED: COUGH DROP (SUGAR FREE) LOZ 24 LOZ/1 BOX BUCCAL ONE (20:18)
[2020-02-05] MEDS: ONDANSETRON INJ 2 MG/ML 2 ML VIAL IV SCH ×2 (03:50→09:57)
[2020-02-05] MEDS: LACTATED RINGER'S 1,000 ML IV SCH (05:58)
[2020-02-05] MEDS: cefOXitin 2,000 MG in DEXTROSE 5% 50 ML IV SCH (05:58)
[2020-02-05 06:04] LABS: Basophils # (auto) 0.01 K/uL (0-0.2); Basophils % (auto) 0.1 %; Eosinophils # (auto) 0.01 K/uL (0-0.5); Eosinophils % (auto) 0.1 %; Hematocrit (blood only) 37.2 % (37-47); Hemoglobin 12.9 g/dL (12.0-16.0); Immature Granulocytes # (auto) 0.02 K/uL (0.00-0.02); Immature Granulocytes % (auto) 0.2 %; Lymphocytes # (auto) 1.41 K/uL (1.2-3.4); Lymphocytes % (auto) 17.2 %; Mean Corpuscular Hemoglobin 32.2 pg (25-34); Mean Corpuscular Hgb Conc 34.7 g/dL (32-36); Mean Corpuscular Volume 92.8 fL (80-100); Mean Platelet Volume 9.8 fL (7.4-10.4); Monocytes # (auto) 0.68 K/uL (0.11-0.59); Monocytes % (auto) 8.3 %; Neutrophils # (auto) 6.06 K/uL (1.4-6.5); Neutrophils % (auto) 74.1 %; Platelet Count 192 K/uL (130-400); RDW Coefficient of Variation 12.5 % (11.5-14.5); RDW Standard Deviation 42.5 fL (36.4-46.3); Red Blood Count 4.01 M/uL (4.2-5.4); White Blood Count 8.19 K/uL (4.8-10.8)
[2020-02-05 07:00] LABS: Albumin Level 3.2 gm/dl (3.4-5.0); BUN Creatinine Ratio 6.6 (10-20); Bilirubin Direct 0.2 mg/dl (0-0.2); Bilirubin,Total 0.6 mg/dl (0.2-1); Calcium 8.4 mg/dl (8.5-10.1); Creatinine Clr Calc Pharmacy 102.7 ml/min; Est GFR (African American) 124.7; Est GFR (Non-African American) 107.6; Potassium 3.7 mmol/L (3.5-5.1); Total Protein 6.6 gm/dl (6.4-8.2)
[2020-02-05] MEDS ORDERED: INDOMETHACIN 50 MG SUPP PR ONE ×2 (08:00)
--- NOTE | 2020-02-05 09:26 | Surgery Progress Note ---
Date of Service February 05, 2020 Assessment & Plan (1) Hx laparoscopic cholecystectomy: Looking much better. LFT's are improving. Discussed with Dr. Ojeda and ERCP is not needed at this time. Will advance diet. As pt wants to go home today, will plan on discharge later (with drain in place) and f/u LFT's as outpt tomorrow with f/u with Dr. Crain. postop instructions reviewed. Admission and Anticipated Discharge Date Admission Date: February 04, 2020 Subjective Feels better. Tolerated clear liquids yesterday. No nausea/ vomiting. Wants to try and go home today if possible. Review of Systems Review of Systems: All systems reviewed & are unremarkable except as noted in HPI & below Physical Exam Constitutional: WD/WN, vitals as above Respiratory: normal respiratory effort, lungs clear to auscultation Cardiovascular: RRR, no murmur, no edema Gastrointestinal (Abdomen): Inspection/Auscultation: abdomen normal to inspection; abdomen not distended and + abnormal bowel sounds (hypoactive) Percussion/Palpation: abdomen soft; abdomen nontender incisions clean and dry, MILTON serosanguinous Neurologic: CN's II-XI intact bilaterally; no focal motor deficits Psychiatric: Orientation: alert and oriented x 3 Results & Data ([facility]) Vital Signs (Past 12 Hours) Vital Signs Temp Pulse Pulse Resp BP BP Pulse Ox 02/05/20 07:42 37.0 C 98 H 16 143/94 H 97 02/05/20 03:22 36.8 C 66 14 144/92 H 100 02/04/20 22:49 36.7 C 80 14 146/87 H 97 Laboratory Results Abnormal lab results 02/05/20 02/05/20 Range/Units 05:52 05:52 RBC 4.01 L (4.2-5.4) M/uL [place] # (Auto) 0.68 H (0.11-0.59) K/uL Chloride 109 H (98-107) mmol/L BUN 5 L (7-18) mg/dl BUN/Creatinine Ratio 6.6 L (10-20) Glucose 104 H (70-99) mg/dl Calcium 8.4 L (8.5-10.1) mg/dl AST 309 H (15-37) U/L ALT 938 H (12-78) U/L Albumin 3.2 L (3.4-5.0) gm/dl
--- NOTE | 2020-02-05 09:35 | History & Physical Bridge Note ---
Date of Service February 05, 2020 History & Physical Bridge Note I have examined the patient, reviewed the History & Physical and in the interval since the performance of the History & Physical I have noted the following changes of clinical significance: no changes noted Supervising Physician Co-Signing Physician Notes Chart reviewed Labs downtrending MILTON Drain in. No acute complaints Discussion between Dr. Odell and Surgery - given downtrending lft's, and improving status, no plans for ercp today.
[2020-02-05] MEDS ORDERED: oxyCODONE IR HOME PACK PO ONE (10:30)
--- NOTE | 2020-02-12 10:53 | Discharge Summary (DS) ---
ADMISSION DIAGNOSIS: Cholecystitis. DISCHARGE DIAGNOSIS: Cholecystitis. HOSPITAL COURSE: The patient was presented to the Emergency Department on 02/04/2020 secondary to acute cholecystitis. The patient reported a right upper quadrant abdominal pain beginning in the night preceding her admission. The patient presented to the Emergency Department where a gallbladder ultrasound revealed gallstones with gallbladder sludge and gallbladder wall thickening. The patient was noted to have some elevation of her LFTs as well as bilirubin. Tentative plans were made for a cholecystectomy. However, on hospital day #1, the patient was noted to have further elevation of her LFTs, so an MRCP was performed, which did not reveal any evidence of choledocholithiasis. The patient therefore underwent a laparoscopic cholecystectomy with Dr. Crain on 02/04/2020. Intraoperative cholangiogram did show concern for filling deficits, so the patient was not discharged home after this procedure. A GI consultation was obtained and tentative plans for ERCP was made. However, the following day, patient's LFTs were beginning to trend down and after discussion with gastroenterology, it was determined that she did not need an ERCP and was therefore discharged home on 02/05/2020. The patient was provided with appropriate wound care, activity, and diet instructions and was instructed to follow up with Dr. Crain on 02/09/2020. She was discharged home in stable condition.
== END 2020-02-05 11:41 | disposition home or self-care (01) ==
LOC: 3E 23:05 → ED 23:05 → 3E 02-04 02:44